=== PATIENT | female | born 1940 | race Caucasian/White ===

== ENCOUNTER → 2023-09-10 08:37 | Outpatient (REF) | payer MEDICARE, OTHER, SELFPAY ==
[2023-09-10 10:04] LABS: % Basophils 0.6 % (0-2); % Eosinophils 2.5 % (0-6); % Immature Granulocytes 0.3 % (0-0.5); % Lymphocytes 40.1 % (20.5-51.1); % Monocytes 9.4 % (1.7-9.3); % Neutrophils 47.1 % (42.2-75.2); Absolute Eosinophils 0.2 10^3/uL (0-0.7); Absolute Lymphocytes 2.8 10^3/uL (1.2-3.4); Absolute Monocytes 0.7 10^3/uL (0.1-0.6); Absolute Neutrophils 3.3 10^3/uL (1.4-6.5); Hematocrit 41.8 % (37.0-47.0); Hemoglobin 13.7 g/dL (12.0-16.0); Mean Corp Hgb Conc. 32.8 g/dL (33.0-37.0); Mean Corpuscular Hgb 30.7 pg (27.0-31.0); Mean Corpuscular Volume 93.7 fL (81.0-99.0); Mean Platelet Volume 10.6 fL (7.4-10.4); Nucleated Red Blood Cells % 0 %; Platelet Count 225 10^3/uL (130-400); Red Blood Cell Count 4.46 10^6/uL (4.20-5.40); Red Cell Dist. Width 12.4 % (11.5-14.5); White Blood Cell Count 6.9 10^3/uL (4.8-10.8)
[2023-09-10 11:11] LABS: ALT (SGPT) 15 U/L (0-35); AST (SGOT) 27 U/L (14-36); Albumin 4.5 g/dl (3.5-5.0); Alkaline Phosphatase 76 U/L (38-126); Blood Urea Nitrogen 17 mg/dl (7-17); Calcium 9.9 mg/dl (8.4-10.2); Carbon Dioxide 24 mmol/L (22-30); Chloride 105 mmol/L (98-107); Glucose 91 mg/dl (70-99); HDL Cholesterol 50 mg/dl; LDL Cholesterol, Calculated 181 mg/dl; Potassium 4.5 mmol/L (3.5-5.1); Sodium 140 mmol/L (135-145); Total Bilirubin 0.7 mg/dl (0.2-1.3); Total Cholesterol 271 mg/dl (50-199); Total Protein 7.4 g/dl (6.3-8.2); Triglyceride 203 mg/dl (10-149); Very Low Density Lipoprotein 40 mg/dl (0-30); eGFR > 60.00
[2023-09-10 11:24] LABS: Vitamin D, 25-OH*** 40.5 ng/mL (30-80)
[2023-09-10 11:38] LABS: TSH 2.06 uIU/ml (0.47-4.68)
[2023-09-10 19:09] LABS: Hepatitis C Antibody Negative (Negative)
== END ==
LOC: RAD 08:37
PROVIDERS: ATTENDING PHYSICIAN Family Medicine
DX: E04.1 Nontoxic single thyroid nodule (principal); Z11.59 Encounter for screening for other viral diseases; E03.9 Hypothyroidism, unspecified; E55.9 Vitamin D deficiency, unspecified; E78.2 Mixed hyperlipidemia
CPT/HCPCS: 36415; 76536; 80053; 80061; 82306; 84443; 85025; 86803

== ENCOUNTER → 2024-01-01 14:29 | Outpatient (REF) | payer MEDICARE, OTHER, SELFPAY ==
[2024-01-01 16:11] LABS: C-Reactive Protein < 5.00 mg/L (0.0-10.00)
[2024-01-01 16:48] LABS: % Basophils 0.4 % (0-2); % Eosinophils 1.4 % (0-6); % Immature Granulocytes 0.3 % (0-0.5); % Lymphocytes 32.1 % (20.5-51.1); % Monocytes 9.4 % (1.7-9.3); % Neutrophils 56.4 % (42.2-75.2); Absolute Eosinophils 0.1 10^3/uL (0-0.7); Absolute Lymphocytes 2.2 10^3/uL (1.2-3.4); Absolute Monocytes 0.7 10^3/uL (0.1-0.6); Absolute Neutrophils 3.9 10^3/uL (1.4-6.5); Hematocrit 39.1 % (37.0-47.0); Mean Corp Hgb Conc. 33.2 g/dL (33.0-37.0); Mean Corpuscular Hgb 30.3 pg (27.0-31.0); Mean Corpuscular Volume 91.1 fL (81.0-99.0); Mean Platelet Volume 10.7 fL (7.4-10.4); Nucleated Red Blood Cells % 0 %; Platelet Count 225 10^3/uL (130-400); Red Blood Cell Count 4.29 10^6/uL (4.20-5.40); Red Cell Dist. Width 12.7 % (11.5-14.5); White Blood Cell Count 6.9 10^3/uL (4.8-10.8)
[2024-01-01 17:04] LABS: Erythrocyte Sed Rate 17 mm/hour (0-20)
== END ==
LOC: REG 14:29
PROVIDERS: ATTENDING PHYSICIAN Family Medicine; REFERRING PHYSICIAN Dermatology Dermatopathology
DX: R21 Rash and other nonspecific skin eruption (principal)
CPT/HCPCS: 36415; 85025; 85652; 86038; 86140; 86618

== ENCOUNTER → 2024-03-21 11:34 | Outpatient (REF) | payer MEDICARE, OTHER, SELFPAY ==
[2024-03-21 13:07] LABS: % Basophils 0.4 % (0-2); % Eosinophils 3.8 % (0-6); % Immature Granulocytes 0.4 % (0-0.5); % Lymphocytes 19.9 % (20.5-51.1); % Monocytes 14.8 % (1.7-9.3); % Neutrophils 60.7 % (42.2-75.2); Absolute Eosinophils 0.3 10^3/uL (0-0.7); Absolute Lymphocytes 1.4 10^3/uL (1.2-3.4); Absolute Monocytes 1.1 10^3/uL (0.1-0.6); Absolute Neutrophils 4.3 10^3/uL (1.4-6.5); Hematocrit 39.3 % (37.0-47.0); Hemoglobin 13.1 g/dL (12.0-16.0); Mean Corp Hgb Conc. 33.3 g/dL (33.0-37.0); Mean Corpuscular Volume 95.9 fL (81.0-99.0); Mean Platelet Volume 10.1 fL (7.4-10.4); Nucleated Red Blood Cells % 0 %; Platelet Count 240 10^3/uL (130-400); Red Cell Dist. Width 12.3 % (11.5-14.5); White Blood Cell Count 7.2 10^3/uL (4.8-10.8)
[2024-03-21 13:21] LABS: Urine Albumin Negative (Neg - Trace); Urine Bilirubin Negative (Negative); Urine Character Clear (Clear); Urine Color Yellow; Urine Glucose Negative (Negative); Urine Ketone Negative (Negative); Urine Leukocyte Trace (Negative); Urine Nitrite Negative (Negative); Urine Occult Blood Negative (Negative); Urine Urobilinogen Negative (Neg - 1+)
[2024-03-21 14:09] LABS: Complement C3 181 mg/dl (88-165)
[2024-03-21 14:16] LABS: ALT (SGPT) 14 U/L (0-35); AST (SGOT) 22 U/L (14-36); Albumin 4.2 g/dl (3.5-5.0); Alkaline Phosphatase 91 U/L (38-126); Blood Urea Nitrogen 18 mg/dl (7-17); Calcium 9.1 mg/dl (8.4-10.2); Carbon Dioxide 28 mmol/L (22-30); Chloride 97 mmol/L (98-107); Direct Bilirubin 0.1 mg/dl (0.0-0.4); Glucose 104 mg/dl (70-99); Potassium 4.6 mmol/L (3.5-5.1); Sodium 137 mmol/L (135-145); Total Bilirubin 0.3 mg/dl (0.2-1.3); Total Protein 7.1 g/dl (6.3-8.2); eGFR > 60.00
[2024-03-21 14:32] LABS: Erythrocyte Sed Rate 27 mm/hour (0-20)
[2024-03-21 14:33] LABS: Free T4 1.25 ng/dl (0.78-2.19); Vitamin D, 25-OH*** 34.7 ng/mL (30-80)
[2024-03-21 14:38] LABS: Protein/creatinine Ratio 0.2; Urine Protein 11 mg/dl
[2024-03-21 14:46] LABS: TSH 1.27 uIU/ml (0.47-4.68)
[2024-03-21 14:47] LABS: Urine Bacteria Few (Negative)
[2024-03-21 17:47] LABS: Rheumatoid Agglutinin Less Than 10 IU (<10 IU)
[2024-03-22 09:52] LABS: Intact PTH 55.9 pg/ml (13.6-85.8)
[2024-03-24 00:08] LABS: F-Actin Antibody IgG 8 Units (0-19); Mitochondrial M2 Ab, IgG 3.2 Units (0.0-24.9)
[2024-03-24 07:08] LABS: SSA 52 (Ro)(ENA) Ab, IgG 5 AU/mL (0-40); SSA 60 (Ro)(ENA) Ab, IgG 0 AU/mL (0-40); SSB (La)(ENA) Ab, IgG 8 AU/mL (0-40); Scleroderma Antibody (Scl-70) 1 AU/mL (0-40); Smith (ENA) Antibody, IgG 1 AU/mL (0-40)
[2024-03-24 08:29] LABS: Smith/RNP (ENA), IgG 2 Units (0-19)
== END ==
LOC: REG 11:34
PROVIDERS: ATTENDING PHYSICIAN Student in an Organized Health Care Education/Training Program; FAMILY PHYSICIAN Family Medicine
DX: M81.0 Age-related osteoporosis without current pathological fracture (principal); R76.8 Other specified abnormal immunological findings in serum; U07.1 COVID-19
CPT/HCPCS: 36415; 80053; 81003; 81015; 82248; 82306; 82570; 83970; 84156; 84439; 84443; 85025; 85652; 86015; 86160; 86225; 86235; 86381; 86430

== ENCOUNTER → 2024-04-22 14:34 | Outpatient (REF) | payer MEDICARE, OTHER, SELFPAY ==
[2024-04-22 15:02] LABS: Ionized Calcium 1.19 mMOL/L (1.15-1.33)
[2024-04-22 15:38] LABS: Blood Urea Nitrogen 19 mg/dl (7-17); Calcium 9.2 mg/dl (8.4-10.2); Carbon Dioxide 29 mmol/L (22-30); Chloride 100 mmol/L (98-107); Glucose 110 mg/dl (70-99); Potassium 4.8 mmol/L (3.5-5.1); Sodium 137 mmol/L (135-145); eGFR > 60.00
== END ==
LOC: REG 14:34
PROVIDERS: ATTENDING PHYSICIAN Student in an Organized Health Care Education/Training Program; FAMILY PHYSICIAN Family Medicine
DX: M81.0 Age-related osteoporosis without current pathological fracture (principal); R76.8 Other specified abnormal immunological findings in serum; Z51.81 Encounter for therapeutic drug level monitoring
CPT/HCPCS: 36415; 80048; 82330